=== PATIENT | female | born 1985 | race Caucasian/White ===

== ENCOUNTER → 2016-08-22 09:17 | Outpatient (CLI) | payer MEDICAID ==
[2016-08-22 10:38] LABS: BASOPHILS 0.5 % (0-2); EOSINOPHILS 1.3 % (0-7); HEMATOCRIT 37.2 % (36.0-48.0); HEMOGLOBIN 12.1 g/dL (12-16); IMMATURE GRANULOCYTES 0.2 % (0-5); MCH 30.2 pg (26.0-34.0); MCHC 32.5 g/dL (31.0-37.0); MCV 92.8 fL (80.0-100.0); MEAN PLATELET VOLUME 10.9 fL (7.4-10.4); PLATELET COUNT 205 10x3/uL (130-400); RBC 4.01 10x6/uL (4.00-5.40); RDW 12.9 % (11.5-14.5); WBC 5.6 10x3/uL (4.8-10.8)
[2016-08-22 11:05] LABS: ALBUMIN 4.2 g/dL (3.4-5.0); ALKALINE PHOSPHATASE 96 U/L (46-116); ALT (SGPT) 44 U/L (10-68); BILIRUBIN - TOTAL 0.33 mg/dL (0.2-1.3); CALC OSMOLALITY 286 mosm/kg (275-300); CALCIUM 9.8 mg/dL (8.5-10.1); CARBON DIOXIDE 31.8 mmol/L (21.0-32.0); CHLORIDE - SERUM 107 mmol/L (98-107); CREATININE - SERUM 0.9 mg/dL (0.6-1.3); GLUCOSE 86 mg/dL (74-106); POTASSIUM - SERUM 3.5 mmol/L (3.5-5.1); PROTEIN - SERUM 7.5 g/dL (6.4-8.2); SODIUM 145 mmol/L (136-145); T4 THYROXIN - FREE 0.93 ng/dL (0.76-1.46); THYROID STIMULATING HORMONE 0.88 uIU/mL (0.36-3.74); UREA NITROGEN 9 mg/dL (7-18); eGFR NON AFRICAN AMERICAN 76 mL/min (90-120)
== END | disposition home or self-care (01) ==
LOC: D.US 09:17 → D.LAB 08-23 08:30 → D.RAD 08-23 08:45 → D.US 08-23 09:00 → D.NM 08-23 09:30
PROVIDERS: Internal Medicine Gastroenterology
DX: R10.11 Right upper quadrant pain (principal); R11.2 Nausea with vomiting, unspecified; R63.4 Abnormal weight loss

== ENCOUNTER 2016-11-05 05:30 | Day surgery (SDC) | payer MEDICAID ==
[2016-11-02 11:23] LABS: HEMATOCRIT 37.4 % (36.0-48.0); HEMOGLOBIN 12.2 g/dL (12-16); MCH 30.3 pg (26.0-34.0); MCHC 32.6 g/dL (31.0-37.0); MCV 92.8 fL (80.0-100.0); MEAN PLATELET VOLUME 10.4 fL (7.4-10.4); RBC 4.03 10x6/uL (4.00-5.40)
[~2016-11-05] VITALS: Ht 160 cm; Wt 52.2 kg
[2016-11-05 07:26] VITALS: BP 107/72; Ht 160 cm; Wt 52.2 kg
[2016-11-05] MEDS ORDERED: KEPPRA500 MG PO (07:41)
--- NOTE | 2016-11-05 10:20 | NUR ---
0920 UPDATE GIVEN TO FAMILY - PROCEDURE HAS NOT BEGAN 0935 GERIATRICIAN HERE 1020UPDATE GIVEN TO FAMILY - PROCEDURE HAS NOT BEGAN
[2016-11-05] MEDS ORDERED: HYDROCODON-ACE1 EAC7 PO (11:48)
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
--- NOTE | 2016-11-05 15:20 | NUR ---
1435 PT AWAKE & ALERT. BY USING NOTES PT STATES SHE UNDERSTANDS D/C INFORMATION, INCLUDING RTC APPT., MED REC., & RX FOR NORCO 5/325MG. TO PRIVATE CAR PER WHEELCHAIR BY VOLUNTEER. HOME WITH . Maki GORE R.N.
== END 2016-11-05 14:35 | disposition home or self-care (01) ==
LOC: D.OPS 05:30 → D.PAN 08:45 → D.OPS 08:45
PROVIDERS: Anesthesiology
DX: K80.10 Calculus of gallbladder with chronic cholecystitis without obstruction (principal); H90.5 Unspecified sensorineural hearing loss; Z01.812 Encounter for preprocedural laboratory examination